=== PATIENT | male | born 1960 | race Caucasian/White ===

== ENCOUNTER → 2018-07-19 | Outpatient (CLI) | payer OTHER ==
[2018-07-19 10:53] LABS: BASOPHILS # (AUTO) 0.07 x10^3/uL (0-0.1); BASOPHILS % (AUTO) 1 % (0-1); EOSINOPHILS # (AUTO) 0.46 x10^3/uL (0-0.4); EOSINOPHILS % (AUTO) 5 % (1-7); LYMPHOCYTES # (AUTO) 1.06 x10^3/uL (1-3.4); LYMPHOCYTES % (AUTO) 11 % (22-44); MD NO; MEAN CORPUSCULAR HEMOGLOBIN 30.1 pg (27.5-34.5); MEAN CORPUSCULAR HGB CONC 34.1 g/dL (33.2-36.2); MEAN CORPUSCULAR VOLUME 88.1 fL (81-97); MEAN PLATELET VOLUME 8.1 fL (7.4-10.4); MICROSCOPIC NOT IND; MONOCYTES # (AUTO) 1.11 x10^3/uL (0.2-0.8); MONOCYTES % (AUTO) 11 % (2-9); NEUTROPHILS # (AUTO) 7.14 x10^3/uL (1.8-6.8); NEUTROPHILS % (AUTO) 73 % (42-75); PLATELET COUNT 314 x10^3/uL (130-400); RED BLOOD COUNT 5.21 x10^6/uL (4.38-5.82); RED CELL DISTRIBUTION WIDTH 15.1 % (9.4-14.8)
[2018-07-19 10:59] LABS: CULTURE INDICATED? NO
== END | disposition home or self-care (01) ==
LOC: STAR 09:26
PROVIDERS: ATTEND Orthopaedic Surgery
DX: Z01.818 Encounter for other preprocedural examination (principal); M16.12 Unilateral primary osteoarthritis, left hip
CPT/HCPCS: 36415; 81003; 85025; 87081; 87147; 93005

== ENCOUNTER 2018-07-26 05:15 | Inpatient (IN) | payer OTHER ==
[2018-07-19 10:01] VITALS: BP 109/76
[~2018-07-26] VITALS: Ht 185.4 cm; Wt 103.7 kg
[2018-07-26] MEDS ORDERED: LACTATED RINGERS 1,000 ML IV SCH (05:54)
[2018-07-26] MEDS ORDERED: NONE PER PT (05:58)
[2018-07-26] MEDS ORDERED: LIDOCAINE-MPF 1%, 2ML INFIL ONE (06:00)
[2018-07-26] MEDS ORDERED: CELE200C PO (06:18)
[2018-07-26] MEDS ORDERED: TRANEXAMIC ACID 100 MG/ML, 10ML ONE (06:41)
[2018-07-26] MEDS ORDERED: KETOROLAC 60 MG/2 ML ONE (06:41)
[2018-07-26] MEDS ORDERED: morphine SULFATE/PF 1 MG/ML, 10ML ONE (06:42)
[2018-07-26] MEDS ORDERED: EPINEPHRINE 1 MG/ML, 1ML ONE (06:42)
[2018-07-26] MEDS ORDERED: ROPIvacaine/PF 0.2%, 20 ML ONE (06:42)
[2018-07-26 06:49] LABS: ALANINE AMINOTRANSFERASE 36 U/L (12-78); ALBUMIN 3.6 g/dL (3.4-5.0); ANION GAP 8 mmol/L (5-15); CALCIUM 8.8 mg/dL (8.5-10.1); CHLORIDE 107 mmol/L (98-107); CREATININE 0.93 mg/dL (0.7-1.3)
[2018-07-26] MEDS ORDERED: MIDAZOLAM 1 MG/ML, 2ML ONE ×2 (06:49→08:40)
[2018-07-26] MEDS ORDERED: LIDOCAINE GEL 2%, 5ML ONE (06:49)
[2018-07-26] MEDS ORDERED: FENTANYL PF 250 MCG/5ML ONE (06:49)
[2018-07-26 06:51] LABS: ALKALINE PHOSPHATASE 101 U/L (45-117); BILIRUBIN,TOTAL 0.7 mg/dL (0.2-1.0); TOTAL PROTEIN 7.9 g/dL (6.4-8.2)
[2018-07-26] MEDS ORDERED: LIDOCAINE-MPF 2%, 2ML ONE ×2 (06:52)
[2018-07-26] MEDS ORDERED: ACETAMINOPHEN 500 MG TABLET PO ONE (07:00)
[2018-07-26] MEDS ORDERED: GABAPENTIN 300 MG CAPSULE PO ONE (07:00)
[2018-07-26] MEDS ORDERED: ONDANSETRON ODT 8 MG PO ONE (07:00)
[2018-07-26] MEDS ORDERED: OxyconTIN ER 10 MG TAB.ER PO ONE (07:00)
[2018-07-26] MEDS ORDERED: VANCOMYCIN 1,000 MG ONE (07:12)
[2018-07-26] MEDS ORDERED: ROCURONIUM 10MG/ML,5ML ONE (07:27)
[2018-07-26] MEDS ORDERED: PROPOFOL 10 MG/ML, 20ML ONE (07:27)
[2018-07-26] MEDS ORDERED: GLYCOPYRROLATE 0.2MG/1ML, 5ML ONE (07:27)
[2018-07-26] MEDS ORDERED: DEXAMETHASONE 4 MG/ML, 1ML ONE (07:27)
[2018-07-26] MEDS ORDERED: CEFAZOLIN 1,000 MG ONE (07:27)
[2018-07-26] MEDS ORDERED: SUCCINYLCHOLINE 20 MG/ML, 10ML ONE (07:27)
[2018-07-26] MEDS ORDERED: NEOSTIGMINE 1 MG/ML, 10ML ONE (07:27)
[2018-07-26] MEDS ORDERED: ONDANSETRON 2MG/ML, 2ML ONE (07:27)
[2018-07-26] MEDS ORDERED: LABETALOL 5MG/ML, 20ML ONE (07:35)
[2018-07-26] MEDS ORDERED: FENTANYL PF 100 MCG/2ML ONE (08:17)
[2018-07-26] MEDS ORDERED: HYDROmorphone 2 MG/ML, 1ML ONE (08:17)
[2018-07-26] MEDS ORDERED: OXYcodone 5 MG/5 ML ORAL.SOL UDC ONE (08:17)
[2018-07-26] MEDS: HYDROmorphone 1 MG/ML, 1ML IV PRN ×4 (08:21→08:37)
[2018-07-26] MEDS ORDERED: LABETALOL 5MG/ML, 20ML IV PRN (08:30)
[2018-07-26] MEDS ORDERED: MIDAZOLAM 1 MG/ML, 2ML IV PRN (08:30)
[2018-07-26] MEDS ORDERED: ONDANSETRON 2MG/ML, 2ML IV PRN (08:30)
[2018-07-26] MEDS ORDERED: ALBUTEROL/IPRATROPIUM 2.5MG/0.5MG, 3 ML NPPB PRN (08:30)
[2018-07-26] MEDS ORDERED: PROMETHAZINE 25 MG/ML, 1ML IV PRN (08:30)
[2018-07-26] MEDS ORDERED: SCOPOLAMINE PATCH, 1.5MG PATCH.TD72 TD PRN (08:30)
[2018-07-26] MEDS ORDERED: MEPERIDINE/PF 25MG/0.5ML IVPush PRN (08:30)
[2018-07-26] MEDS: FENTANYL PF 100 MCG/2ML IV PRN (08:30)
[2018-07-26] MEDS ORDERED: OXYcodone 5 MG/5 ML ORAL.SOL UDC PO PRN (08:30)
[2018-07-26] MEDS ORDERED: PROMETHAZINE 25 MG/ML, 1ML ONE (08:40)
[2018-07-26 09:45] VITALS: BP 137/90
[2018-07-26] MEDS ORDERED: SENNA/DOCUSATE TABLET PO PRN (10:30)
[2018-07-26] MEDS ORDERED: ONDANSETRON ODT 4 MG PO PRN (10:30)
[2018-07-26] MEDS ORDERED: ZOLPIDEM 5MG TABLET PO PRN (10:30)
[2018-07-26] MEDS ORDERED: ALUMINUM/MAG/SIMETHICONE 30 ML UDC PO PRN (10:30)
[2018-07-26] MEDS ORDERED: MAGNESIUM HYDROXIDE 8%, 30ML UDC PO PRN (10:30)
[2018-07-26] MEDS ORDERED: ONDANSETRON 2MG/ML, 2ML IVPush PRN (10:30)
[2018-07-26] MEDS ORDERED: DIPHENHYDRAMINE 25 MG CAPSULE PO PRN (10:30)
[2018-07-26] MEDS ORDERED: ACETAMINOPHEN 325 MG TABLET PO PRN (10:30)
[2018-07-26] MEDS ORDERED: BISACODYL 10 MG SUPP PR PRN (10:30)
[2018-07-26] MEDS: POTASSIUM CHLORIDE 10 MEQ in D5%-0.45% NACL 1,000 ML IV SCH (10:35)
[2018-07-26] MEDS ORDERED: PREGABALIN 75 MG CAPSULE ONE (11:12)
[2018-07-26] MEDS ORDERED: DOCUSATE 100 MG CAPSULE ONE (11:12)
[2018-07-26] MEDS: PREGABALIN 75 MG CAPSULE PO SCH ×2 (11:13→20:51)
[2018-07-26] MEDS: DOCUSATE 100 MG CAPSULE PO SCH ×2 (11:13→20:51)
[2018-07-26] MEDS: HYDROcodone/APAP 7.5-325MG/15ML UDC PO PRN ×4 (12:50→22:36)
[2018-07-26] MEDS: CEFAZOLIN PMX 1GM/50ML 50 ML IVPB SCH ×2 (15:19→22:36)
[2018-07-26] MEDS ORDERED: VANCOMYCIN PMX 1GM/200ML 200 ML IVPB ONE (19:00)
[2018-07-26 19:49] VITALS: BP 111/74
[2018-07-26] MEDS ORDERED: DOCUSATE 100 MG CAPSULE PO SCH (21:00)
[2018-07-26] MEDS ORDERED: PREGABALIN 75 MG CAPSULE PO SCH (21:00)
[2018-07-27 00:05] VITALS: BP 109/63
[2018-07-27 02:37] VITALS: BP 112/69
[2018-07-27] MEDS: HYDROcodone/APAP 7.5-325MG/15ML UDC PO PRN ×3 (02:39→12:14)
[2018-07-27] MEDS ORDERED: ENOXAPARIN 30 MG/0.3 ML SQ SCH (06:00)
[2018-07-27] MEDS: POTASSIUM CHLORIDE 10 MEQ in D5%-0.45% NACL 1,000 ML IV SCH (06:25)
[2018-07-27 07:49] VITALS: BP 115/74
[2018-07-27] MEDS: DOCUSATE 100 MG CAPSULE PO SCH (08:41)
[2018-07-27] MEDS: PREGABALIN 75 MG CAPSULE PO SCH (08:42)
[2018-07-27] MEDS ORDERED: MULTIVITAMINS/MINERALS TABLET PO SCH (09:00)
[2018-07-27] MEDS ORDERED: KETOROLAC 30 MG/1 ML IV SCH (10:30)
[2018-07-27 12:44] VITALS: BP 101/63
[2018-07-27] MEDS ORDERED: ASPI-496 PO (13:19)
[2018-07-27] MEDS ORDERED: OXYC-302 PO (13:20)
== END 2018-07-27 13:55 | disposition home or self-care (01) | DRG 470 ==
LOC: ORIP 05:15 → 4NOR 09:40 → DCLOUNGE 07-27 13:31
PROVIDERS: ADMIT Orthopaedic Surgery; ATTEND Orthopaedic Surgery
PROC: 0SRB0JA Replacement of Left Hip Joint with Synthetic Substitute, Uncemented, Open Approach (ICD-10-PCS; principal; 2018-07-26 07:00)
DX: M16.12 Unilateral primary osteoarthritis, left hip (principal)
CPT/HCPCS: 36415; 72170; J3490; 80053; 86850; 86900; C1713; J0171; J0690; J1100; J1170; J1650; J1885; J2250; J2274; J2405; J2550; J2704; J2710; J2795; J3010; J3370; J3480; Q0162; C1776; J0330; J7120